=== PATIENT | female | born 2000 | race Two or more races ===

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

== ENCOUNTER 2021-02-22 13:44 | Emergency (ER) | payer SELFPAY ==
[~2021-02-22] VITALS: Ht 152.4 cm; Wt 61.7 kg
--- NOTE | 2021-02-22 14:41 | NUR ---
[id number] HOME. 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 DENIES SI/HI. NOT IN POLICE CUSTODY. VITALS WITHIN NORMAL LIMITS. BREATHING IS EVEN AND UNLABORED.
[2021-02-22 15:55] LABS: BILIRUBIN,URINE SMALL (NEGATIVE); COLOR,URINE YELLOW (YELLOW); LEUKOCYTE ESTERASE ,URINE NEGATIVE (NEGATIVE); NITRITE, URINE NEGATIVE (NEGATIVE); PROTEIN,URINE 30 mg/dl (NEGATIVE); UGLUCOSE NEGATIVE (NEGATIVE); UROBILINOGEN,URINE 0.2 EU/dL (0.2)
[2021-02-22] MEDS ORDERED: OLANZAPINE 5 MG TABLET PO ONE (16:00)
[2021-02-22 16:18] LABS: BACTERIA,URINE None seen /HPF (None Seen); MUCUS,URINE Many /LPF (None Seen); WBC,URINE 0-2 /HPF (0-3)
[2021-02-22] MEDS ORDERED: OLANZAPINE 5 MG TABLET ONE (17:15)
--- NOTE | 2021-02-22 19:50 | NUR ---
PT ambulatory with a steady gait, VSS
--- NOTE | 2021-02-22 20:30 | NUR ---
CALLED MOTHER, LEFT MESSAGE
--- NOTE | 2021-02-22 20:31 | NUR ---
Patient discharged to home in stable condition. Written and verbal after care instructions given. Patient verbalizes understanding of instruction. PT ambulatory with a steady gait
--- NOTE | 2021-02-23 08:03 | NUR ---
PT IS AMBULATORY. NO DISTRESS.
[2021-02-23 08:04] VITALS: BP 124/66
--- NOTE | 2021-02-23 08:04 | NUR ---
PT IS DIFFICULT TO ARROUSE. WILL LET HER REST FOR NOW.
== END 2021-02-23 08:05 | disposition home or self-care (01) ==
LOC: ER 13:45
DX: F15.10 Other stimulant abuse, uncomplicated (principal); F17.210 Nicotine dependence, cigarettes, uncomplicated; Z59.00 Homelessness unspecified
CPT/HCPCS: 81001; 84703-TC